=== PATIENT | male | born 1950 | race Caucasian/White ===

== ENCOUNTER 2022-06-28 19:49 | Emergency (ER) | payer OTHER ==
[~2022-06-28] VITALS: Ht 172.7 cm; Wt 136.1 kg
[2022-06-28 20:35] VITALS: BP 127/84
--- NOTE | 2022-06-28 20:38 | NUR ---
TO LOBBY A/W BED AMBULATORY
--- NOTE | 2022-06-28 23:43 | NUR ---
PT W/C ASSISTED TO BED #2
--- NOTE | 2022-06-28 23:47 | NUR ---
Dr. Ronquillo examining patient.
--- NOTE | 2022-06-28 23:50 | NUR ---
Patient BIB by family from home. C/O right knee pain x 6 days. Patient reported, fell x 1 week ago, and had right knee pain since. PMHx: Chronic lower back pain( possible disc problem)
[2022-06-28] MEDS ORDERED: KETOROLAC 30 MG/ML VIAL IM ONE (23:55)
--- NOTE | 2022-06-29 00:14 | NUR ---
X-Ray at bedside.
[2022-06-29] MEDS ORDERED: NAPR-54 PO (00:37)
[2022-06-29 00:55] VITALS: BP 123/66
--- NOTE | 2022-06-29 00:55 | NUR ---
Patient discharged with v/s stable. Written and verbal after care instructions given and explained. Patient alert, oriented and verbalized understanding of instructions. Wheel Chair Assisted with to car. All questions addressed prior to discharge. ID band removed. Patient advised to follow up with PMD. Rx of Naproxen given. Patient educated on indication of medication including possible reaction and side effects. Opportunity to ask questions provided and answered.
== END 2022-06-29 00:55 | disposition home or self-care (01) ==
LOC: MED 19:49
DX: M13.861 Other specified arthritis, right knee (principal); Z79.899 Other long term (current) drug therapy; W19.XXXA Unspecified fall, initial encounter; Y93.89 Activity, other specified; Y92.89 Other specified places as the place of occurrence of the external cause; Y99.8 Other external cause status
CPT/HCPCS: 73562; 96372; 99283; J1885

== ENCOUNTER 2022-07-11 19:40 | Emergency (ER) | payer OTHER ==
[~2022-07-11] VITALS: Ht 172.7 cm; Wt 106.6 kg
[~2022-07-11 19:40] MED LIST: NAPR-54 PO
[2022-07-11 19:53] VITALS: BP 155/91
[2022-07-11] MEDS ORDERED: FLUORESCEIN OPTH STRIP 1 MG OP ONE (21:10)
[2022-07-11] MEDS ORDERED: TETRACAINE HCL/PF 0.5% OPTH 4 ML BTL OP ONE (21:10)
--- NOTE | 2022-07-11 21:14 | NUR ---
PT TO BED #8
--- NOTE | 2022-07-11 21:16 | NUR ---
Dr. May examining patient.
--- NOTE | 2022-07-11 21:41 | NUR ---
LET EYE 20/30 RIGHT EYE 20/40
[2022-07-11] MEDS ORDERED: OFLO5DRO2 LEFT EYE (21:42)
--- NOTE | 2022-07-11 21:47 | NUR ---
RECEIVED IN BED 8 WITH C/O PAIN AND REDNESS OS X 2 HOURS. HX CATARACT SURGERY 2 YEARS AGO
[2022-07-11 22:05] VITALS: BP 155/91
--- NOTE | 2022-07-11 22:05 | NUR ---
Patient discharged with v/s stable. Written and verbal after care instructions given and explained. Patient alert, oriented and verbalized understanding of instructions. Ambulatory with steady gait. All questions addressed prior to discharge. ID band removed. Patient advised to follow up with PMD. Rx of OFLOXACIN given. Patient educated on indication of medication including possible reaction and side effects. Opportunity to ask questions provided and answered. D/C INSTRUCTIONS GIVEN UTILIZING [employer]
== END 2022-07-11 22:05 | disposition home or self-care (01) ==
LOC: MED 19:40
DX: S05.02XA Injury of conjunctiva and corneal abrasion without foreign body, left eye, initial encounter (principal); X58.XXXA Exposure to other specified factors, initial encounter; Y93.89 Activity, other specified; Y92.89 Other specified places as the place of occurrence of the external cause; Y99.8 Other external cause status
CPT/HCPCS: 99283

== ENCOUNTER 2022-11-25 14:44 | Inpatient (IN) | payer OTHER ==
[~2022-11-25] VITALS: Ht 167.6 cm; Wt 126.6 kg
[~2022-11-25 14:44] MED LIST changes: +OFLO5DRO2 LEFT EYE
[2022-11-25 14:57] VITALS: BP 108/53; PULSE 125; RESP 24; TEMP 100.5; O2SAT 96
[2022-11-25] MEDS ORDERED: KETOROLAC 30 MG/ML VIAL IVP ONE (15:35)
[2022-11-25] MEDS ORDERED: ALBUTEROL SULFATE/IPRATROPIU 3 ML SOL IH ONE (15:35)
[2022-11-25 15:42] LABS: HEMATOCRIT 42.1 % (36-52); HEMOGLOBIN 13.9 g/dL (12.0-18.0); MEAN CORPUSCULAR HEMOGLOBIN 30 pg (27-31); MEAN CORPUSCULAR HGB CONC 33 g/dL (33-37); MEAN CORPUSCULAR VOLUME 89.8 fL (80-94); PLATELET COUNT (AUTO) 218 K/uL (140-450); RED BLOOD CELL COUNT(AUTO) 4.69 MIL/uL (4.20-6.10); RED CELL DISTRIBUTION WIDTH 13.1 % (11.6-13.7); WHITE BLOOD COUNT (AUTO) 16.7 K/uL (4.8-10.8)
[2022-11-25 15:44] VITALS: PULSE 110; RESP 20; O2SAT 97
[2022-11-25 15:53] LABS: ALANINE AMINOTRANSFERASE 15 U/L (12-78); ALBUMIN 3.4 g/dL (3.4-5.0); ALKALINE PHOSPHATASE 88 U/L (50-136); ANION GAP 13.3 (8-16); ASPARTATE AMINOTRANSFERASE 13 U/L (15-37); CALCIUM 8.6 mg/dL (8.5-10.1); CARBON DIOXIDE 26.7 mmol/L (21-32); CHLORIDE 99 mmol/L (98-107); CREATININE 1.9 mg/dL (0.6-1.3); GLUCOSE 115 mg/dL (74-106); LIPASE 27 U/L (16-77); SODIUM SERUM 135 mmol/L (136-145); TOTAL BILIRUBIN 1.4 mg/dL (0.0-1.0); TOTAL PROTEIN, SERUM 7.4 g/dL (6.4-8.2); UREA NITROGEN, BLOOD 24 mg/dL (7-18)
[2022-11-25 15:54] LABS: BASOPHILS % (MANUAL) 0 % (0-2); EOSINOPHILS % (MANUAL) 1 % (0-4); LYMPHOCYTES % (MANUAL) 6 % (20-46); MONOCYTES % (MANUAL) 18 % (5-12); PLATELET ESTIMATE ADEQUATE
[2022-11-25] MEDS ORDERED: NACL 0.9% 1,000 ML IV ONE ×2 (16:35→17:50)
[2022-11-25 17:28] LABS: APPEARANCE,URINE CLEAR (CLEAR); BILIRUBIN,URINE NEGATIVE (NEGATIVE); BLOOD, URINE 1+ (NEGATIVE); COLOR,URINE YELLOW (YELLOW); LEUKOCYTE ESTERASE ,URINE 1+ (NEGATIVE); NITRITE, URINE NEGATIVE (NEGATIVE); PH,URINE 6.5 (5.0-9.0); PROTEIN,URINE 3+ (NEGATIVE); UGLUCOSE NEGATIVE (NEGATIVE); UROBILINOGEN,URINE 0.2 EU/dL (0.2 - 1)
[2022-11-25 17:31] LABS: WBC,URINE 20-60 /HPF (0-5)
[2022-11-25 17:32] LABS: BACTERIA,URINE 3+ /HPF (None Seen); MUCUS,URINE 1+ /LPF (None Seen)
[2022-11-25 17:33] LABS: HYALINE CASTS, URINE 0-10 /LPF (None Seen)
[2022-11-25] MEDS ORDERED: cefTRIAXone 1,000 MG VIAL ONE ×2 (18:12→21:07)
[2022-11-25 18:30] LABS: LACTIC ACID 1.2 mmol/L (0.4-2.0)
[2022-11-25] MEDS: NACL 0.9% 1,000 ML IV SCH (20:40)
[2022-11-25] MEDS ORDERED: ALBUTEROL 0.083% 2.5 MG/3 ML NEBU INH PRN (20:40)
[2022-11-25] MEDS ORDERED: HYDROcodone/APAP 5/325 MG 1 TAB TAB PO PRN (20:40)
[2022-11-25] MEDS ORDERED: MORPHINE SULFATE 2 MG/ML SYR IVP PRN (20:55)
[2022-11-26] VITALS (9 sets, daily range): BP systolic 99–124; BP diastolic 52–70; PULSE 95–109; RESP 19–36; TEMP 98.8–100.8; O2SAT 96–100
[2022-11-26] MEDS: ALBUTEROL 0.083% 2.5 MG/3 ML NEBU INH SCH ×4 (00:58→18:55)
[2022-11-26] MEDS: IPRATROPIUM 0.02% 0.5 MG/2.5 ML NEBU INH SCH ×4 (00:58→18:55)
[2022-11-26 07:59] LABS: BASOPHILS % (AUTO) 0.2 % (0.0-2.0); EOSINOPHILS % (AUTO) 0.1 % (0.0-4.0); HEMATOCRIT 38.7 % (36-52); HEMOGLOBIN 12.8 g/dL (12.0-18.0); LYMPHOCYTES # (AUTO) 0.9 K/uL (2.0-11.5); LYMPHOCYTES % (AUTO) 5.3 % (20.5-51.1); MEAN CORPUSCULAR HEMOGLOBIN 30 pg (27-31); MEAN CORPUSCULAR HGB CONC 33 g/dL (33-37); MEAN CORPUSCULAR VOLUME 90.3 fL (80-94); MONOCYTES # (AUTO) 1.8 K/uL (0.8-1.0); MONOCYTES % (AUTO) 10.2 % (1.7-9.3); NEUTROPHILS # (AUTO) 14.6 K/uL (1.8-7.7); NEUTROPHILS % (AUTO) 84.2 % (42.2-75.2); PLATELET COUNT (AUTO) 165 K/uL (140-450); RED BLOOD CELL COUNT(AUTO) 4.29 MIL/uL (4.20-6.10); RED CELL DISTRIBUTION WIDTH 12.9 % (11.6-13.7); WHITE BLOOD COUNT (AUTO) 17.3 K/uL (4.8-10.8)
[2022-11-26 08:36] LABS: BLOOD GAS HCO3 18.3 mmol/L (22-26); BLOOD GAS PCO2 29.8 mmHg (35-45); BLOOD GAS PH 7.406 (7.35-7.45); BLOOD GAS PO2 89.5 mmHg (75-100)
[2022-11-26 08:37] LABS: BLOOD GAS BASE EXCESS -5.1 mmol/L (-2.0-2.0)
[2022-11-26 08:38] LABS: BLOOD GAS O2 SAT% 96.7 % (92.0-98.5)
[2022-11-26 08:45] LABS: ALANINE AMINOTRANSFERASE 11 U/L (12-78); ALBUMIN 2.8 g/dL (3.4-5.0); ALKALINE PHOSPHATASE 73 U/L (50-136); ANION GAP 15.1 (8-16); ASPARTATE AMINOTRANSFERASE 15 U/L (15-37); CALCIUM 7.8 mg/dL (8.5-10.1); CARBON DIOXIDE 22.8 mmol/L (21-32); CHLORIDE 101 mmol/L (98-107); CREATININE 1.9 mg/dL (0.6-1.3); GLUCOSE 119 mg/dL (74-106); MAGNESIUM 1.4 mg/dL (1.8-2.4); POTASSIUM 3.9 mmol/L (3.5-5.1); SODIUM SERUM 135 mmol/L (136-145); TOTAL BILIRUBIN 0.9 mg/dL (0.0-1.0); TOTAL PROTEIN, SERUM 6.7 g/dL (6.4-8.2); UREA NITROGEN, BLOOD 25 mg/dL (7-18)
[2022-11-26] MEDS: NACL 0.9% 1,000 ML IV SCH ×2 (12:38→23:20)
[2022-11-26] MEDS: ACETAMINOPHEN 325 MG TAB PO PRN ×2 (12:39→20:37)
[2022-11-26] MEDS ORDERED: MAG SULF 2000 MG/WATER PREMIX 50 ML IV PRN (15:00)
[2022-11-26 16:14] LABS: BLOOD GAS HCO3 18.7 mmol/L (22-26); BLOOD GAS PH 7.413 (7.35-7.45); BLOOD GAS PO2 76.3 mmHg (75-100)
[2022-11-26 16:15] LABS: BLOOD GAS BASE EXCESS -4.7 mmol/L (-2.0-2.0); BLOOD GAS O2 SAT% 96.7 % (92.0-98.5)
[2022-11-26] MEDS: NICOTINE TRANSD SYS 21 MG/24 HR PATCH TD SCH (16:15)
[2022-11-27] VITALS (7 sets, daily range): BP systolic 111–139; BP diastolic 64–75; PULSE 70–89; RESP 18–28; TEMP 96.5–97.8; O2SAT 94–99
[2022-11-27] MEDS: ALBUTEROL SULFATE/IPRATROPIU 3 ML SOL IH SCH ×3 (00:40→14:48)
[2022-11-27] MEDS: NACL 0.9% 1,000 ML IV SCH (06:26)
[2022-11-27] MEDS: NICOTINE TRANSD SYS 21 MG/24 HR PATCH TD SCH (08:59)
[2022-11-27] MEDS ORDERED: AZIT250T4 PO (14:26)
[2022-11-27] MEDS ORDERED: CEPH-588 PO (14:26)
[2022-11-27] MEDS ORDERED: PRED20TA5 PO (14:27)
== END 2022-11-27 16:29 | disposition home or self-care (01) | DRG 189 ==
LOC: MED 14:44 → MTU 20:51
PROVIDERS: ADMIT Hospitalist; ATTEND Hospitalist
PROC: 5A09357 Assistance with Respiratory Ventilation, Less than 24 Consecutive Hours, Continuous Positive Airway Pressure (ICD-10-PCS; principal; 2022-11-26)
DX: J96.21 Acute and chronic respiratory failure with hypoxia (principal); R65.11 Systemic inflammatory response syndrome (SIRS) of non-infectious origin with acute organ dysfunction; N39.0 Urinary tract infection, site not specified; Z68.42 Body mass index [BMI] 45.0-49.9, adult; I10 Essential (primary) hypertension; F17.200 Nicotine dependence, unspecified, uncomplicated; J44.9 Chronic obstructive pulmonary disease, unspecified; F17.210 Nicotine dependence, cigarettes, uncomplicated; E66.01 Morbid (severe) obesity due to excess calories; R68.2 Dry mouth, unspecified
CPT/HCPCS: 36415; 36600; 71045; 80053; 81001; 82803; 83605; 83690; 83735; 85025; 85651; 86140; 87040; 87081; 87086; 94640; 94660; 96365; 96375; 99285; J0696; J1885; J3475; J7060; J7613; J7644; Q9967

== ENCOUNTER 2023-03-24 14:53 | Emergency (ER) | payer OTHER ==
[~2023-03-24] VITALS: Ht 182.9 cm; Wt 127.0 kg
[~2023-03-24 14:53] MED LIST changes: +AZIT250T4 PO; +CEPH-588 PO; +PRED20TA5 PO
[2023-03-24 14:55] VITALS: BP 131/82; PULSE 101; RESP 20; TEMP 98.6; O2SAT 96
[2023-03-24] MEDS: ALBUTEROL SULFATE/IPRATROPIU 3 ML SOL IH ONE (15:30)
[2023-03-24 15:31] VITALS: PULSE 88; RESP 16; O2SAT 94
[2023-03-24] MEDS: methylPREDNISolone SS 125 MG/2 ML VIAL IVP ONE (15:39)
[2023-03-24 15:43] LABS: BASOPHILS # (AUTO) 0.1 K/uL (0.00-0.22); BASOPHILS % (AUTO) 1.1 % (0.0-2.0); EOSINOPHILS # (AUTO) 0.3 K/uL (0-0.4); EOSINOPHILS % (AUTO) 3.8 % (0.0-4.0); HEMATOCRIT 43.4 % (36-52); HEMOGLOBIN 14.6 g/dL (12.0-18.0); LYMPHOCYTES # (AUTO) 1.7 K/uL (2.0-11.5); LYMPHOCYTES % (AUTO) 20.7 % (20.5-51.1); MEAN CORPUSCULAR HEMOGLOBIN 30 pg (27-31); MEAN CORPUSCULAR HGB CONC 34 g/dL (33-37); MEAN CORPUSCULAR VOLUME 89.1 fL (80-94); MONOCYTES # (AUTO) 0.5 K/uL (0.8-1.0); MONOCYTES % (AUTO) 6.2 % (1.7-9.3); NEUTROPHILS # (AUTO) 5.7 K/uL (1.8-7.7); NEUTROPHILS % (AUTO) 68.2 % (42.2-75.2); PLATELET COUNT (AUTO) 243 K/uL (140-450); RED BLOOD CELL COUNT(AUTO) 4.87 MIL/uL (4.20-6.10); WHITE BLOOD COUNT (AUTO) 8.3 K/uL (4.8-10.8)
[2023-03-24 15:50] LABS: ANION GAP 14.7 (8-16); CALCIUM 8.9 mg/dL (8.5-10.1); CARBON DIOXIDE 27.1 mmol/L (21-32); CHLORIDE 102 mmol/L (98-107); CREATININE 1.2 mg/dL (0.6-1.3); GLUCOSE 109 mg/dL (74-106); POTASSIUM 3.8 mmol/L (3.5-5.1); SODIUM SERUM 140 mmol/L (136-145); UREA NITROGEN, BLOOD 20 mg/dL (7-18)
[2023-03-24 16:15] LABS: FLU A ANTIGEN negative (NEGATIVE); FLU B ANTIGEN NEGATIVE (NEGATIVE)
[2023-03-24] MEDS: NACL 0.9% 500 ML IV ONE (16:52)
[2023-03-24] MEDS ORDERED: PRED20TA5 PO (18:26)
[2023-03-24] MEDS ORDERED: CICL160A INH (18:26)
[2023-03-24] MEDS ORDERED: ALBU0.0912 INH (18:26)
[2023-03-24] MEDS ORDERED: MECL-303 PO (18:32)
[2023-03-24 19:22] VITALS: BP 131/82; PULSE 88; RESP 16; TEMP 98.6; O2SAT 94
== END 2023-03-24 19:22 | disposition home or self-care (01) ==
LOC: MED 14:53
DX: J44.1 Chronic obstructive pulmonary disease with (acute) exacerbation (principal); Z20.822 Contact with and (suspected) exposure to COVID-19; N28.1 Cyst of kidney, acquired; I70.0 Atherosclerosis of aorta; Z79.899 Other long term (current) drug therapy
CPT/HCPCS: 36415; 71045; 71275; 80048; 83880; 84484; 85025; 85379; 87426; 87804; 93005; 94640; 96361; 96374; 99285; J2930; Q0092; Q9967

== ENCOUNTER 2023-08-19 11:48 | Emergency (ER) | payer OTHER ==
[~2023-08-19] VITALS: Ht 177.8 cm; Wt 136.1 kg
[~2023-08-19 11:48] MED LIST changes: +ALBU0.0912 INH; +CICL160A INH; +MECL-303 PO; +NAPR-337 PO; -NAPR-54 PO
[2023-08-19 12:07] VITALS: BP 126/80; PULSE 82; RESP 18; TEMP 97.3; O2SAT 95
[2023-08-19 13:23] LABS: BASOPHILS # (AUTO) 0.1 K/uL (0.00-0.22); EOSINOPHILS # (AUTO) 0.3 K/uL (0-0.4); EOSINOPHILS % (AUTO) 3.8 % (0.0-4.0); LYMPHOCYTES # (AUTO) 1.6 K/uL (2.0-11.5); LYMPHOCYTES % (AUTO) 19.9 % (20.5-51.1); MEAN CORPUSCULAR HEMOGLOBIN 29 pg (27-31); MEAN CORPUSCULAR HGB CONC 33 g/dL (33-37); MEAN CORPUSCULAR VOLUME 88.3 fL (80-94); MONOCYTES # (AUTO) 0.5 K/uL (0.8-1.0); MONOCYTES % (AUTO) 6.6 % (1.7-9.3); NEUTROPHILS # (AUTO) 5.4 K/uL (1.8-7.7); NEUTROPHILS % (AUTO) 68.7 % (42.2-75.2); PLATELET COUNT (AUTO) 225 K/uL (140-450); RED BLOOD CELL COUNT(AUTO) 4.87 MIL/uL (4.20-6.10); RED CELL DISTRIBUTION WIDTH 14.2 % (11.6-13.7); WHITE BLOOD COUNT (AUTO) 7.9 K/uL (4.8-10.8)
[2023-08-19 13:38] LABS: ANION GAP 10.9 (8-16); CALCIUM 8.9 mg/dL (8.5-10.1); CARBON DIOXIDE 28.6 mmol/L (21-32); CHLORIDE 105 mmol/L (98-107); CREATININE 1.3 mg/dL (0.6-1.3); GLUCOSE 112 mg/dL (74-106); POTASSIUM 4.5 mmol/L (3.5-5.1); SODIUM SERUM 140 mmol/L (136-145); UREA NITROGEN, BLOOD 20 mg/dL (7-18)
[2023-08-19 13:47] LABS: ALANINE AMINOTRANSFERASE 13 U/L (12-78); ALBUMIN 3.1 g/dL (3.4-5.0); ALKALINE PHOSPHATASE 83 U/L (50-136); ASPARTATE AMINOTRANSFERASE 13 U/L (15-37); BILIRUBIN,DIRECT 0.2 mg/dL (0.0-0.3); TOTAL BILIRUBIN 0.7 mg/dL (0.0-1.0); TOTAL PROTEIN, SERUM 6.8 g/dL (6.4-8.2)
[2023-08-19 13:49] LABS: LACTIC ACID 1.4 mmol/L (0.4-2.0)
[2023-08-19 13:51] LABS: INR 0.91 (0.8-1.2); PARTIAL THROMBOPLASTIN TIME 27.6 secs (22-35.6); PROTHROMBIN TIME 9.6 secs (10.8-13.4)
[2023-08-19] MEDS ORDERED: IBUP-2213 PO (15:07)
[2023-08-19] MEDS ORDERED: CEPH-588 PO (15:07)
[2023-08-19 18:17] VITALS: BP 126/80; PULSE 78; RESP 18; TEMP 97.3; O2SAT 98
== END 2023-08-19 15:34 | disposition home or self-care (01) ==
LOC: MED 11:48
DX: L03.115 Cellulitis of right lower limb (principal); J44.9 Chronic obstructive pulmonary disease, unspecified; I10 Essential (primary) hypertension; F17.200 Nicotine dependence, unspecified, uncomplicated; Z98.890 Other specified postprocedural states; Z79.1 Long term (current) use of non-steroidal anti-inflammatories (NSAID); Z79.2 Long term (current) use of antibiotics; Z79.899 Other long term (current) drug therapy
CPT/HCPCS: 36415; 73630; 80048; 80076; 83605; 84484; 85025; 85610; 85730; 87040; 99284

== ENCOUNTER 2023-08-23 19:43 | Inpatient (IN) | payer OTHER ==
[~2023-08-23] VITALS: Ht 167.6 cm; Wt 127.0 kg
[~2023-08-23 19:43] MED LIST changes: +IBUP-2213 PO
[2023-08-23 21:31] VITALS: BP 156/84; PULSE 86; RESP 20; TEMP 97.4; O2SAT 98
[2023-08-23] MEDS ORDERED: VANCOMYCIN PER PHARMACY MC PRN (22:45)
[2023-08-23 23:12] LABS: BASOPHILS # (AUTO) 0.1 K/uL (0.00-0.22); BASOPHILS % (AUTO) 0.9 % (0.0-2.0); EOSINOPHILS # (AUTO) 0.4 K/uL (0-0.4); EOSINOPHILS % (AUTO) 3.9 % (0.0-4.0); HEMATOCRIT 42.2 % (36-52); HEMOGLOBIN 13.8 g/dL (12.0-18.0); LYMPHOCYTES # (AUTO) 1.7 K/uL (2.0-11.5); LYMPHOCYTES % (AUTO) 18.5 % (20.5-51.1); MEAN CORPUSCULAR HEMOGLOBIN 29 pg (27-31); MEAN CORPUSCULAR HGB CONC 33 g/dL (33-37); MEAN CORPUSCULAR VOLUME 88.7 fL (80-94); MONOCYTES # (AUTO) 0.6 K/uL (0.8-1.0); MONOCYTES % (AUTO) 6.8 % (1.7-9.3); NEUTROPHILS # (AUTO) 6.5 K/uL (1.8-7.7); NEUTROPHILS % (AUTO) 69.9 % (42.2-75.2); PLATELET COUNT (AUTO) 245 K/uL (140-450); RED BLOOD CELL COUNT(AUTO) 4.76 MIL/uL (4.20-6.10); RED CELL DISTRIBUTION WIDTH 13.9 % (11.6-13.7); WHITE BLOOD COUNT (AUTO) 9.3 K/uL (4.8-10.8)
[2023-08-23 23:24] LABS: ANION GAP 11.2 (8-16); CALCIUM 8.6 mg/dL (8.5-10.1); CARBON DIOXIDE 29.1 mmol/L (21-32); CHLORIDE 102 mmol/L (98-107); CREATININE 1.5 mg/dL (0.6-1.3); GLUCOSE 102 mg/dL (74-106); POTASSIUM 4.3 mmol/L (3.5-5.1); SODIUM SERUM 138 mmol/L (136-145); UREA NITROGEN, BLOOD 15 mg/dL (7-18)
[2023-08-24] VITALS (11 sets, daily range): BP systolic 130–141; BP diastolic 47–70; PULSE 61–109; RESP 18–27; TEMP 97.3–98; O2SAT 92–95
[2023-08-24] MEDS ORDERED: VANCOMYCIN 1,000 MG VIAL ONE (00:25)
[2023-08-24] MEDS ORDERED: KETOROLAC 30 MG/ML VIAL ONE (00:28)
[2023-08-24] MEDS: VANCOMYCIN 1,000 MG in DEXTROSE 5% 250 ML IV ONE (00:34)
[2023-08-24] MEDS: KETOROLAC 30 MG/ML VIAL IVP ONE (00:36)
[2023-08-24] MEDS ORDERED: MORPHINE SULFATE 2 MG/ML SYR IVP PRN (01:50)
[2023-08-24] MEDS ORDERED: VANCOMYCIN PER PHARMACY MC PRN (01:50)
[2023-08-24] MEDS ORDERED: HYDROcodone/APAP 5/325 MG 1 TAB TAB PO PRN (01:50)
[2023-08-24] MEDS ORDERED: ACETAMINOPHEN 325 MG TAB PO PRN (01:50)
[2023-08-24] MEDS ORDERED: NACL 0.9% 1,000 ML IV SCH (01:50)
[2023-08-24] MEDS ORDERED: AMLO2.5T PO (05:49)
[2023-08-24] MEDS ORDERED: LOSA-272 PO (05:49)
[2023-08-24] MEDS ORDERED: ASPI-1749 PO (05:49)
[2023-08-24] MEDS ORDERED: PIPERACILLIN/TAZOBACTAM 4.5 GM VIAL IV ONE (06:53)
[2023-08-24] MEDS: PIPERACILLIN/TAZOBACTAM 4.5 GM in DEXTROSE 5% 100 ML IV SCH (06:55)
[2023-08-24] MEDS: ENOXAPARIN 40 MG/0.4 ML SYR SUBQ SCH (09:00)
[2023-08-24] MEDS: LOSARTAN 50 MG TAB PO SCH (09:00)
[2023-08-24] MEDS: ASPIRIN 81 MG TAB.CHEW PO SCH (09:00)
[2023-08-24] MEDS: amLODIPine 5 MG TAB PO SCH (09:00)
[2023-08-24] MEDS: ALBUTEROL SULFATE/IPRATROPIU 3 ML SOL IH SCH (13:10)
[2023-08-24] MEDS: VANCOMYCIN 1,000 MG VIAL ONE (20:34)
[2023-08-24] MEDS: VANCOMYCIN 500 MG VIAL ONE (20:34)
[2023-08-24] MEDS: VANCOMYCIN 1,500 MG in DEXTROSE 5% 500 ML IV SCH (20:49)
[2023-08-25] VITALS (10 sets, daily range): BP systolic 110–139; BP diastolic 61–76; PULSE 59–68; RESP 16–20; TEMP 97.6–97.8; O2SAT 92–95
[2023-08-25 05:53] LABS: BASOPHILS # (AUTO) 0.1 K/uL (0.00-0.22); BASOPHILS % (AUTO) 0.8 % (0.0-2.0); EOSINOPHILS # (AUTO) 0.5 K/uL (0-0.4); EOSINOPHILS % (AUTO) 6.5 % (0.0-4.0); HEMATOCRIT 39.3 % (36-52); HEMOGLOBIN 12.8 g/dL (12.0-18.0); LYMPHOCYTES # (AUTO) 1.6 K/uL (2.0-11.5); MEAN CORPUSCULAR HEMOGLOBIN 29 pg (27-31); MEAN CORPUSCULAR HGB CONC 33 g/dL (33-37); MEAN CORPUSCULAR VOLUME 88.7 fL (80-94); MONOCYTES # (AUTO) 0.6 K/uL (0.8-1.0); MONOCYTES % (AUTO) 7.7 % (1.7-9.3); NEUTROPHILS # (AUTO) 4.6 K/uL (1.8-7.7); PLATELET COUNT (AUTO) 223 K/uL (140-450); RED BLOOD CELL COUNT(AUTO) 4.44 MIL/uL (4.20-6.10); RED CELL DISTRIBUTION WIDTH 13.9 % (11.6-13.7); WHITE BLOOD COUNT (AUTO) 7.3 K/uL (4.8-10.8)
[2023-08-25 06:06] LABS: ALANINE AMINOTRANSFERASE 12 U/L (12-78); ALBUMIN 2.8 g/dL (3.4-5.0); ALKALINE PHOSPHATASE 75 U/L (50-136); ANION GAP 9.4 (8-16); ASPARTATE AMINOTRANSFERASE 18 U/L (15-37); CALCIUM 8.2 mg/dL (8.5-10.1); CARBON DIOXIDE 27.9 mmol/L (21-32); CHLORIDE 104 mmol/L (98-107); CREATININE 1.6 mg/dL (0.6-1.3); GLUCOSE 108 mg/dL (74-106); MAGNESIUM 2.2 mg/dL (1.8-2.4); POTASSIUM 4.3 mmol/L (3.5-5.1); SODIUM SERUM 137 mmol/L (136-145); TOTAL BILIRUBIN 0.9 mg/dL (0.0-1.0); TOTAL PROTEIN, SERUM 6.3 g/dL (6.4-8.2); UREA NITROGEN, BLOOD 24 mg/dL (7-18)
[2023-08-25] MEDS: VANCOMYCIN 1,500 MG in DEXTROSE 5% 500 ML IV SCH (18:53)
[2023-08-25] MEDS: NICOTINE TRANSD SYS 21 MG/24 HR PATCH TD SCH (23:05)
[2023-08-26] VITALS: BP 121/69; PULSE 59; RESP 18; TEMP 98.5; O2SAT 95
[2023-08-26 01:37] VITALS: O2SAT 92
[2023-08-26 05:45] LABS: ANION GAP 6.3 (8-16); CALCIUM 8.6 mg/dL (8.5-10.1); CARBON DIOXIDE 31.1 mmol/L (21-32); CHLORIDE 105 mmol/L (98-107); CREATININE 1.6 mg/dL (0.6-1.3); GLUCOSE 102 mg/dL (74-106); POTASSIUM 4.4 mmol/L (3.5-5.1); SODIUM SERUM 138 mmol/L (136-145); UREA NITROGEN, BLOOD 22 mg/dL (7-18)
[2023-08-26 08:00] VITALS: BP 145/81; PULSE 61; RESP 18; RESP 20; TEMP 97.3; O2SAT 92; O2SAT 93
[2023-08-26 08:56] VITALS: PULSE 67; RESP 16; O2SAT 98
[2023-08-26] MEDS ORDERED: LEVO-481 PO (10:41)
[2023-08-26] MEDS ORDERED: CLIN150C1 PO (10:41)
[2023-08-26 11:11] VITALS: BP 145/81; PULSE 61; RESP 20; TEMP 97.3
== END 2023-08-26 12:00 | disposition home or self-care (01) | DRG 602 ==
LOC: MED 19:43 → MTU 08-24 02:06 → MMU 08-24 02:06
PROVIDERS: ADMIT Student in an Organized Health Care Education/Training Program; ATTEND Student in an Organized Health Care Education/Training Program
DX: L03.115 Cellulitis of right lower limb (principal); E43 Unspecified severe protein-calorie malnutrition; Z68.42 Body mass index [BMI] 45.0-49.9, adult; I10 Essential (primary) hypertension; Z79.899 Other long term (current) drug therapy; E66.01 Morbid (severe) obesity due to excess calories
CPT/HCPCS: 36415; 71045; 73630; 80048; 80053; 83605; 83735; 84100; 85025; 85651; 86140; 87040; 94640; 96374; 99285; J1650; J1885; J2543; J3370; J7060; Q0092